=== PATIENT | female | born 1945 | race African-American/Black ===

== ENCOUNTER 2019-03-26 12:03 | Inpatient (IN) | payer MEDICARE, SELFPAY ==
[~2019-03-26 12:03] MED LIST: ISOVUE-370 76%-LOCM 1 ML ONE
[2019-03-26] MEDS ORDERED: Diltiazem 125 MG/25 ML ONE (12:43)
[2019-03-26 13:08] LABS: #Eosinphils 0.1 thou/uL (0.0-0.7); #Monocytes 0.7 thou/uL (0.11-0.59); %Basophils 0.1 % (0.0-1.0); %Eosinophils 0.9 % (0.0-10.0); %Lymphocytes 9.9 % (21.0-51.0); %Monocytes 7.2 % (0.0-10.0); Hemoglobin 10.9 g/dL (12.0-16.0); Mean Corpuscular HGB CONC 31.8 g/dL (32.0-36.0); Mean Corpuscular Hemoglobin 29.4 pg (27.0-31.0); Mean Corpuscular Volume 92.6 fL (78.0-98.0); Mean Platelet Volume 8.7 fL (7.4-10.4); Platelet Count 228 thou/uL (130-400); RBC Distribution Width 12.4 % (11.5-14.5); White Blood Cell (WBC) Count 9.7 thou/uL (4.8-10.8)
--- NOTE | 2019-03-26 13:26 | RAD ---
SINGLE VIEW OF THE CHEST: COMPARISON: None. HISTORY: Shortness of breath for 3 days; dyspnea. FINDINGS: A single view of the chest shows a cardiomediastinal silhouette which is upper limits of normal in si ze. There is questionable airspace opacity projecting over the right lower lobe. No pleural effusio n is seen. IMPRESSION: Possible early right lower lobe infiltrate. POS: TPC
[2019-03-26 13:33] LABS: ALT (SGPT) 16 U/L (8-55); AST (SGOT) 21 U/L (5-34); Albumin 3.4 g/dL (3.4-4.8); Alkaline Phosphatase 80 U/L (40-150); Anion Gap 12 mmol/L (10-20); BUN (Urea Nitrogen) 7 mg/dL (9.8-20.1); Bilirubin, Total 0.5 mg/dL (0.2-1.2); Calc. Creatinine Clearance 0 mL/min (70-130); Calcium 9.3 mg/dL (7.8-10.44); Carbon Dioxide 26 mmol/L (23-31); Chloride 105 mmol/L (98-107); Estimated GFR-MDRD 47; Globulin 3.4 g/dL (2.4-3.5); Glucose 101 mg/dL (83-110); Magnesium 1.2 mg/dL (1.6-2.6); Potassium 3.4 mmol/L (3.5-5.1); Protein, Total 6.8 g/dL (6.0-8.3); Sodium 140 mmol/L (136-145)
[2019-03-26 13:53] LABS: CKMB 2.8 ng/mL (0-6.6)
[2019-03-26] MEDS ORDERED: Aspirin Chewable 81 MG TAB ONE (14:40)
[2019-03-26] MEDS ORDERED: Enoxaparin Sodium 100 MG/ML SYRINGE ONE (14:40)
[2019-03-26] MEDS ORDERED: Magnesium 2 GM/50 ML BAG (IN WATER) ONE (14:40)
[2019-03-26] MEDS ORDERED: Enoxaparin Sodium 30 MG/0.3 ML SYRINGE ONE ×2 (14:42→14:45)
--- NOTE | 2019-03-26 15:07 | CT ---
CTA Angio Chest W WO Con 03/26/2019 2:08 PM Indication: Dyspnea; history of asthma and COPD with chest tightness and shortness of breath Technique: Multiple CTA images were obtained of the thorax with IV contrast. 3D reformatted images were constructed from the raw data. Comparison: None Findings: Pulmonary arteries: No central or segmental pulmonary embolus is evident. Heart and Great Vessels: There is cardiomegaly with pulmonary vascular congestion. Lungs:There is mild interstitial edema. There is subsegmental volume loss within both lower lobes. Pleural space: There are [id number] bilateral pleural effusions. Upper Abdomen: There is a 8.2 cm cyst within the left hepatic lobe. Osseous Structures: No acute osseous abnormality. Impression: No central or segmental pulmonary embolus. Cardiomegaly pulmonary vascular congestion and interstitial edema suspicious for CHF. There are small moderate bilateral pleural effusions. Left hepatic lobe cyst
[2019-03-26] MEDS ORDERED: Furosemide 40 MG/4 ML VIAL ONE (15:43)
[2019-03-26 16:47] LABS: Troponin I 0.109 ng/mL (< 0.028)
[2019-03-26] MEDS ORDERED: Acetaminophen 325 MG TAB PO PRN (18:54)
[2019-03-26] MEDS ORDERED: Zolpidem Tartrate 5 MG TAB PO PRN (18:56)
[2019-03-26 19:17] VITALS: BMI 42.5
[2019-03-26 19:41] LABS: Troponin I 0.124 ng/mL (< 0.028)
[2019-03-26] MEDS: Metoprolol Tartrate 50 MG TAB PO SCH (22:09)
--- NOTE | 2019-03-26 23:14 | HP ---
CHIEF COMPLAINT: Shortness of breath. HISTORY OF PRESENT ILLNESS: This patient is a 73-year-old female with a history of asthma, who presented via the emergency department. It sounds like most of her medical care has been in the direction of [place]. She reported that about 3 days ago she had the spontaneous onset of some shortness of breath, dyspnea on exertion and orthopnea. She had some associated chest pain, which she described as tightness, making it hard for her to get her breath. She stated she was unable to even get up and go a few steps to the bathroom without being severely tachypneic "panting." She had been using her nebulizers for her asthma, but felt like she was still wheezing. She had no associated nausea, vomiting, lightheadedness, fevers or chills and only a minimal cough that started this morning. She denies any prior cardiac history or rhythm issues other than stating that she was told in the past that she had "pauses." The patient was noted to have atrial fibrillation with rapid ventricular response in the emergency department with a rate in the 120. She was started on a Cardizem drip and had significant improvements in her rate control. She also received a dose of Lasix, 2 g of magnesium, therapeutic dose of Lovenox, aspirin and a DuoNeb. REVIEW OF SYSTEMS: All systems reviewed. She had some knee swelling from degenerative joint disease. Otherwise, all systems reviewed and all pertinent positives and negatives noted in the history of present illness. PAST MEDICAL HISTORY: Notable for osteoarthritis of the knees and hips. She reports she has no cartilage in her knee joints and makes it hard for her to ambulate well. 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 She is allergic rhinitis, asthma, hypertension, obstructive sleep apnea, and says she has some cardiac pauses. PAST SURGICAL HISTORY: Bilateral tubal ligation, bilateral rotator cuff repair. FAMILY HISTORY: Mother at 73 of cancer. Father at 59 of an RI. SOCIAL HISTORY: Nonsmoker, nondrinker, nondrug user. She is currently . She is full code, should she need one her surrogate decision maker would be her brother, Jennifer Holder at [phone] ALLERGIES: LISINOPRIL. CURRENT MEDICATIONS: 1. Iron 325 p.o. daily. 2. Losartan 50 mg daily. 3. Citalopram 20 mg daily. 4. Levocetirizine 5 mg daily. 5. Zolpidem 10 mg daily. 6. Felodipine 10 mg daily (patient has been out of this for a month). 7. Triamterene/hydrochlorothiazide 75-50 one p.o. daily (has been out of this for a month). 8. Metoprolol 50 mg b.i.d. (reports she has been out of this for a month). 9. Advair Diskus 100-50 one inhalation b.i.d. 10. Albuterol nebulizer as needed. PHYSICAL EXAMINATION: INITIAL VITAL SIGNS: BP is 175/123, pulse 123, respirations 16, O2 saturation 92% on room air, when she left the emergency department, BP 162/106, pulse 82, respirations 20, O2 saturation 97% on 2 L nasal cannula. GENERAL APPEARANCE: Obese, age-appropriate female, who appears quite comfortable. Presently, she is awake, alert, oriented, pleasant, no distress. HEENT: PERRL, no OP lesions. NECK: Supple and symmetric. HEART: Presently is regular rate and rhythm without murmurs, gallops, or rubs. LUNGS: Clear. I do not appreciate significant wheezing or rales. It is bit compromised, because of her obesity, but seems to have fair air exchange. ABDOMEN: Soft, nontender, and nondistended. Positive bowel sounds. No masses. No organomegaly. EXTREMITIES: No cyanosis, clubbing, or edema. Peripheral pulses are present and symmetric. LABORATORY DATA: White count 9.7, hemoglobin 10.9, platelets 228. D-dimer 1.35. Sodium 140, potassium is 3.4, BUN 7, creatinine is 1.15, glucose 101, magnesium 1.2. AST is 21, ALT 16. Troponin 0.08 and 0.109. BNP 1157. IMAGING: Chest x-ray, possible early right lower lobe infiltrate. CT angio of the chest shows no pulmonary emboli, cardiomegaly with vascular congestion and interstitial edema suspicious for CHF and small moderate bilateral pleural effusions, left lobe hepatic cyst. IMPRESSION AND PLAN: 1. Dyspnea. The patient has mild acute hypoxic respiratory failure, saturating only 92% with a respiratory rate of 26, improved on oxygen, likely combination of atrial fibrillation and congestive heart failure in a patient with underlying asthma. 2. Congestive heart failure. The patient has no history of congestive heart failure. Her BNP is elevated. She has got cardiomegaly and some evidence of vascular engorgement and edema. She did receive a dose of Lasix in the emergency department. She appears to be more stable at the moment. We will continue on telemetry and get echocardiogram in the morning. 3. Elevated troponins, likely type 2 RI with demand ischemia secondary to atrial fibrillation with rapid ventricular response. Continue telemetry. Continue monitoring enzymes. Get the echo. Consult Cardiology. 4. Atrial fibrillation with rapid ventricular rate, new onset for this patient. She does not have a history of it. This may have led to the elevated troponins and possibly some high-output failure. The patient apparently was on beta blockers previously, but has been out of those, which might have allowed for this to occur. She was started on a Cardizem drip in the emergency department and has apparently just now converted back to sinus rhythm. We will continue that drip for now, especially in light of her elevated blood pressure. Should her pressure drop or heart rate drop, we will be able to discontinue that tonight. 5. Asthma. The patient does not have significant wheezing at the moment. I believe that her symptoms are more related to cardiac issues than reactive airway disease. We will provide her with some nebulizer treatments as needed. 6. Hypertension. The patient has been out of several of her medications. I believe this may be related to some social issues and separation from her . We will keep the diltiazem drip for now. We will likely be able to get her back on the oral medications tomorrow. 7. Renal. The patient has elevated creatinine. We do not have any baseline numbers for her otherwise to know, if this is acute or chronic. I suspect she has some mild acute renal injury due to the atrial fibrillation with rapid ventricular rate and heart failure. 8. Mild anemia. The patient is on iron, consistent with a history of some iron deficiency. Her MCV is normal. We will not investigate further unless other significant changes occur. Job ID: [id number]
[2019-03-27] MEDS: Albuterol Sulfate 2.5 mg/3 ml Neb NEB PRN ×2 (03:44→09:51)
[2019-03-27 07:23] LABS: Anion Gap 11 mmol/L (10-20); BUN (Urea Nitrogen) 7 mg/dL (9.8-20.1); Calc. Creatinine Clearance 76 mL/min (70-130); Calcium 9.3 mg/dL (7.8-10.44); Carbon Dioxide 29 mmol/L (23-31); Chloride 102 mmol/L (98-107); Estimated GFR-MDRD 59; Glucose 89 mg/dL (83-110); Potassium 3.3 mmol/L (3.5-5.1); Sodium 139 mmol/L (136-145)
[2019-03-27] MEDS ORDERED: Potassium Chloride 20 MEQ TAB PO SCH (08:00)
[2019-03-27] MEDS ORDERED: Magnesium Sulfate 4 GM in Sodium Chloride 0.9% 250 ML 250 ML IVPB SCH (08:45)
[2019-03-27] MEDS ORDERED: Diltiazem 125 MG in Sodium Chloride 0.9% 100 ML IVPB SCH (08:45)
[2019-03-27] MEDS ORDERED: Furosemide 20 MG/2 ML VIAL SLOW IVP SCH ×3 (08:45→14:00)
[2019-03-27] MEDS ORDERED: Aspirin 325 mg Enteric Coated Tablet PO SCH (09:00)
[2019-03-27] MEDS ORDERED: Triamterene/Hydrochlorothiazid 75 mg/50 mg Tablet PO SCH (09:00)
[2019-03-27] MEDS: Losartan 25 MG TAB PO SCH (09:02)
[2019-03-27] MEDS: Loratadine 10 MG TAB PO SCH (09:02)
[2019-03-27] MEDS: Citalopram 20 MG TAB PO SCH (09:02)
[2019-03-27] MEDS: Metoprolol Tartrate 50 MG TAB PO SCH (09:03)
[2019-03-27 09:08] LABS: CKMB 2.7 ng/mL (0-6.6)
[2019-03-27] MEDS: ALPRAZolam 0.25 MG TAB PO PRN ×2 (09:47→20:59)
[2019-03-27] MEDS ORDERED: methylPREDNISolone Sod Succ 40 MG VIAL IVP SCH (10:00)
[2019-03-27] MEDS ORDERED: Bacteriostatic Water 30 ML VIAL FS PRN (10:40)
[2019-03-27] MEDS: Potassium Chloride 20 MEQ TAB PO SCH ×2 (12:52→16:34)
[2019-03-27] MEDS ORDERED: Fentanyl 100 MCG/2 ML VIAL ONE (13:44)
[2019-03-27] MEDS ORDERED: Midazolam HCl 2 mg/2 ml Vial ONE (13:44)
[2019-03-27] MEDS ORDERED: Communication Order-Pharmacy FS SCH (14:00)
[2019-03-27] MEDS: Furosemide 40 MG/4 ML VIAL SLOW IVP SCH (14:35)
[2019-03-27] MEDS: Carvedilol 25 MG TAB PO SCH (16:34)
--- NOTE | 2019-03-27 18:16 | PRG ---
DATE OF SERVICE: 03/27/2019 SUBJECTIVE: The patient continues to have significant shortness of breath and wheezing. She denies any fever or chills. She has a cough, which is essentially nonproductive. No chest pain. REVIEW OF SYSTEMS: The patient denies any nausea, vomiting, or diaphoresis. She feels depressed, however denies any suicidal ideation. She has lot of stress lately. All other review of systems was reviewed and was found negative. ALLERGIES: THE PATIENT IS ALLERGIC TO LISINOPRIL. CURRENT HOME MEDICATIONS: Reviewed. PHYSICAL EXAMINATION: VITAL SIGNS: Temperature 98.5, pulse rate of 77, respiration of 24 earlier and at this time is 32, O2 saturation 97% on 2 L nasal cannula, and blood pressure 150/94. GENERAL: A 73-year-old female in [id number] respiratory distress. Audible wheezing noted. Able to complete short phrases. HEENT: Head; atraumatic and normocephalic. Sclerae anicteric. Moist mucous membranes. No oral lesion. NECK: Supple. JVD elevated. LUNGS: Showed diffuse expiratory wheezing with bibasilar rales. There was scattered wheezing. Accessory muscle use. HEART: S1 and S2 present. Regular rate and rhythm. 2/6 systolic murmur over the mitral area. No heaves or pulsation. ABDOMEN: Soft and obese. Bowel sounds present. EXTREMITIES: Bilateral lower extremity edema. No calf tenderness. NEUROLOGIC: Grossly nonfocal, moves all 4 extremities. PSYCHIATRIC: Alert, awake, and oriented x3. LABORATORY FINDINGS: Magnesium 1.4. Troponin 0.124, creatinine 1.1, potassium 3.3. WBC 9.7 with hemoglobin 10.9, platelet of 228. CT angiogram of the chest by my review showed pulmonary vascular congestion with small moderate bilateral pleural effusion. Telemetry monitoring by my review showed sinus rhythm. IMPRESSION: 1. Atrial fibrillation with rapid ventricular response. The patient is currently in sinus rhythm. 2. Acute congestive heart failure exacerbation, suspected systolic. 3. Morbid obesity with a BMI of 41.8. 4. Hypokalemia. 5. Hypomagnesemia. 6. Type 2 myocardial infarction. 7. Asthma exacerbation. 8. History of mild intermittent asthma. 9. Hypertension. 10. Depression without any suicidal ideation. 11. Seasonal allergies. 12. Chronic insomnia. 13. NOE inhibitor allergy. PLAN: Cardizem drip will be continued. Cardiology will be consulted. We will replace potassium and magnesium. We will recheck labs in a.m. Echocardiogram will be done. We will consult [facility] due to significant depression. Continue beta-blockers. Continue losartan. IV diuretics. Fluid restriction. Congestive heart failure education. We will consult family preservation caseworker for assistance due to difficult family situation. The patient will require 2 to 3 days for stabilization. Job ID: [id number]
[2019-03-27] MEDS: Enoxaparin Sodium 100 MG/ML SYRINGE SC SCH (20:59)
[2019-03-27] MEDS: Atorvastatin Calcium 40 MG TAB PO SCH (20:59)
[2019-03-27] MEDS ORDERED: Enoxaparin Sodium 40 MG/0.4 ML SYRINGE SC SCH (21:00)
--- NOTE | 2019-03-27 21:33 | CON ---
DATE OF CONSULTATION: HISTORY OF PRESENT ILLNESS: The patient is a 73-year-old woman, who presents for evaluation of palpitations and dyspnea. The patient has a previous history of an irregular heart rhythm. She states she was in her usual state of health when she several days ago developed progressive dyspnea on exertion. The patient states she also developed PND and orthopnea. The patient also reports having significant palpitations. The patient denied having any chest discomfort. PAST MEDICAL HISTORY: 1. Hypertension. 2. Asthma. 3. History of pneumonia. 4. Depression. PAST SURGICAL HISTORY: 1. Shoulder surgery. 2. Tubal ligation. SOCIAL HISTORY: Former smoker. MEDICATIONS: 1. Metoprolol 50 b.i.d. 2. Felodipine 10 daily. 3. Losartan 50 daily. 4. Celexa 20 daily. 5. Levocetirizine dihydrochloride 5 mg at bedtime. 6. Triamterene-hydrochlorothiazide 75 mg/50 mg daily. FAMILY HISTORY: Positive family history of heart disease. ALLERGIES: LISINOPRIL. SOCIAL HISTORY: Former smoker. REVIEW OF SYSTEMS: Ten-point system otherwise unremarkable. PHYSICAL EXAMINATION: GENERAL: Obese woman, in mild distress. VITAL SIGNS: Blood pressure of 127/82. NECK: Full. LUNGS: Few crackles in both bases. HEART: Regular rate and rhythm. Normal S1, S2. No murmurs. ABDOMEN: Distended. EXTREMITIES: Showed trace edema. VASCULAR: Radial pulses 2+. LABORATORY DATA: White blood cell count 9.7, hemoglobin 10.9, hematocrit 34.3, platelets are 228. Sodium is 139, potassium 3.3, chloride 102, bicarbonate 29, BUN 7, creatinine 1.1. Troponin 0.078. Her initial EKG revealed atrial fibrillation with a nonspecific T-wave abnormality. EKG #2 revealed normal sinus rhythm with left anterior fascicular block and marked ST-T wave abnormality suggestive of ischemia. Echocardiogram revealed severe decrease in left ventricular systolic function with an estimated ejection fraction of 25% to 30%. IMPRESSION: 1. Congestive heart failure. 2. New-onset atrial fibrillation. 3. Dilated cardiomyopathy. 4. Hypertension. 5. Morbid obesity. This patient presents with congestive heart failure. From a cardiac standpoint , she has new-onset atrial fibrillation. Her electrocardiogram shows evidence for some significant ischemia. I discussed the option of stress testing versus a cardiac catheterization. The patient strongly prefers an invasive evaluation. PLAN: 1. Proceed with cardiac catheterization. 2. Switched to Coreg. 3. Continue losartan. 4. Start lipid-lowering medication. Job ID: [id number] [place]
[2019-03-27] MEDS: Zolpidem Tartrate 5 MG TAB PO PRN (21:44)
[2019-03-28] MEDS: Furosemide 40 MG/4 ML VIAL SLOW IVP SCH (05:31)
[2019-03-28 05:32] LABS: #Lymphocytes 1.2 thou/uL (1.20-3.40); #Neutrophils 9.3 thou/uL (1.40-6.50); %Eosinophils 0.1 % (0.0-10.0); %Lymphocytes 10.8 % (21.0-51.0); %Monocytes 8.4 % (0.0-10.0); %Neutrophils 80.6 % (42.0-75.0); Mean Corpuscular HGB CONC 32.2 g/dL (32.0-36.0); Mean Corpuscular Hemoglobin 30.2 pg (27.0-31.0); Mean Corpuscular Volume 93.7 fL (78.0-98.0); Mean Platelet Volume 9.1 fL (7.4-10.4); Platelet Count 255 thou/uL (130-400); RBC Distribution Width 12.5 % (11.5-14.5); Red Blood Cell (RBC) Count 3.63 mill/uL (4.20-5.40); White Blood Cell (WBC) Count 11.5 thou/uL (4.8-10.8)
[2019-03-28 05:59] LABS: ALT (SGPT) 14 U/L (8-55); AST (SGOT) 14 U/L (5-34); Albumin 3.4 g/dL (3.4-4.8); Alkaline Phosphatase 75 U/L (40-150); Anion Gap 9 mmol/L (10-20); BUN (Urea Nitrogen) 16 mg/dL (9.8-20.1); Bilirubin, Total 0.4 mg/dL (0.2-1.2); Calc. Creatinine Clearance 61 mL/min (70-130); Carbon Dioxide 34 mmol/L (23-31); Chloride 100 mmol/L (98-107); Estimated GFR-MDRD 46; Globulin 3.3 g/dL (2.4-3.5); Glucose 122 mg/dL (83-110); Potassium 3.8 mmol/L (3.5-5.1); Protein, Total 6.7 g/dL (6.0-8.3); Sodium 139 mmol/L (136-145)
[2019-03-28] MEDS: Citalopram 20 MG TAB PO SCH (08:42)
[2019-03-28] MEDS: Loratadine 10 MG TAB PO SCH (08:42)
[2019-03-28] MEDS: Carvedilol 25 MG TAB PO SCH ×2 (08:42→16:46)
[2019-03-28] MEDS: Losartan 25 MG TAB PO SCH (08:42)
[2019-03-28] MEDS: Potassium Chloride 20 MEQ TAB PO SCH ×2 (08:42→12:45)
[2019-03-28] MEDS: Enoxaparin Sodium 100 MG/ML SYRINGE SC SCH ×2 (08:43→21:05)
[2019-03-28] MEDS: Aspirin 81 mg Enteric Coated Tablet PO SCH (10:11)
[2019-03-28] MEDS: Furosemide 20 MG/2 ML VIAL SLOW IVP SCH (14:18)
--- NOTE | 2019-03-28 16:24 | PDOC.PN ---
- Subjective Encounter Start Date: 03/28/19 Encounter Start Time: 11:00 Patient seen and examined for CHF/Afib. SOB improving. No fever. No new complaints. No overnight events - Objective Resuscitation Status - Order Detail: 03/26/19 18:54 Resuscitation Status Routine Resuscitation Status: FULL: Full Resuscitation MAR Reviewed: Yes Vital Signs & Weight: Vital Signs (12 hours) Temp Pulse Pulse Pulse Resp BP BP 03/28/19 14:26 78 20 03/28/19 13:04 71 83 112/63 131/73 03/28/19 12:41 97.8 F 75 18 03/28/19 08:26 97.7 F 68 18 03/28/19 05:07 BP Pulse Ox Pulse Ox Pulse Ox 03/28/19 14:26 98 03/28/19 13:04 94 L 96 03/28/19 12:41 105/72 98 03/28/19 08:26 133/73 97 03/28/19 05:07 92 L Weight Weight 224 lb 8 oz I&O: 03/27/19 03/28/19 03/29/19 06:59 06:59 06:59 Intake Total 500 1388 Output Total 900 1520 Balance -400 -132 Result Diagrams: 03/28/19 04:46 03/28/19 04:46 EKG Reviewed by me: Yes (Tele SR, PAT earlier) Phys Exam - Physical Examination Constitutional: NAD Respiratory: no wheezing B/L rhonchi with rales at bases Cardiovascular: RRR, no rub Gastrointestinal: soft, non-tender, positive bowel sounds Musculoskeletal: edema present Neurological: moves all 4 limbs Dx/Plan - Plan DVT proph w/lovenox IMPRESSION: 1. Atrial fibrillation with rapid ventricular response - in sinus rhythm. 2. Acute systolic heart failure exacerbation - ACC stage C. 3. Morbid obesity with a BMI of 41.8. 4. Hypokalemia. 5. Hypomagnesemia. 6. Type 2 myocardial infarction. 7. Asthma exacerbation. 8. History of mild intermittent asthma. 9. Hypertension. 10. Depression without any suicidal ideation. 11. Seasonal allergies. 12. Chronic insomnia. 13. NOE inhibitor allergy. 14. Mitral regurgitation. 15. SVT PLAN: Reduce Lasix dose to 20 mg IV BID Reduce Potassium dose AM labs Cont fluid restriction Patient declining Cath Cont ACEI BB dose increased Counselled on CHF Review of Systems - Review of Systems Respiratory: Cough, Dry, SOB with Excertion. negative: Shortness of Breath, Hemoptysis, Pleuritic Pain, Sputum, Wheezing Cardiovascular: negative: chest pain, palpitations, orthopnea, paroxysmal nocturnal dyspnea, edema, light headedness, other Gastrointestinal: negative: Nausea, Vomiting, Abdominal Pain, Diarrhea, Constipation, Melena, Hematochezia, Other - Medications/Allergies Allergies/Adverse Reactions: Allergies Allergy/AdvReac Type Severity Reaction Status Date / Time lisinopril Allergy Severe Anaphylaxis Verified 03/26/19 19:41 Medications: Current Medications Acetaminophen (Tylenol) 650 mg PO Q4H PRN PRN Reason: Headache/Fever/Mild Pain (1-3) Last Admin: 03/26/19 22:09 Dose: 650 mg Albuterol Sulfate (Ventolin) 2.5 mg NEB Q4H PRN PRN Reason: Wheezing Last Admin: 03/27/19 09:51 Dose: 2.5 mg Albuterol/Ipratropium (Duoneb) 3 ml NEB [id number] PRN PRN Reason: SOB &/or Wheezing Last Admin: 03/28/19 14:26 Dose: 3 ml Alprazolam (Xanax) 0.25 mg PO BIDPRN PRN PRN Reason: Anxiety Last Admin: 03/27/19 20:59 Dose: 0.25 mg Aspirin (Ecotrin) 81 mg PO DAILY [facility] Last Admin: 03/28/19 10:11 Dose: 81 mg Atorvastatin Calcium (Lipitor) 40 mg PO HS [facility] Last Admin: 03/27/19 20:59 Dose: 40 mg Carvedilol (Coreg) 25 mg PO BID-WM [facility] Last Admin: 03/28/19 08:42 Dose: 25 mg Citalopram Hydrobromide (Celexa) 20 mg PO DAILY [facility] Last Admin: 03/28/19 08:42 Dose: 20 mg Enoxaparin Sodium (Lovenox) 100 mg SC 0900,2100 [facility] Last Admin: 03/28/19 08:43 Dose: 100 mg Furosemide (Lasix) 20 mg SLOW IVP 0600,1400 [facility] Last Admin: 03/28/19 14:18 Dose: 20 mg Loratadine (Claritin) 10 mg PO DAILY [facility] Last Admin: 03/28/19 08:42 Dose: 10 mg Losartan Potassium (Cozaar) 50 mg PO DAILY [facility] Last Admin: 03/28/19 08:42 Dose: 50 mg Potassium Chloride (K-Dur) 20 meq PO TID-WM [facility] Last Admin: 03/28/19 12:45 Dose: 20 meq Sodium Chloride (Flush - Normal Saline) 10 ml IVF Q12HR [facility] Last Admin: 03/28/19 08:42 Dose: 10 ml Sodium Chloride (Flush - Normal Saline) 10 ml IVF PRN PRN PRN Reason: Saline Flush Sterile Water (Bacteriostatic Water) 1 ml FS PRN PRN PRN Reason: RECONSTITUTION Zolpidem Tartrate (Ambien) 5 mg PO HSPRN PRN PRN Reason: Insomnia Last Admin: 03/27/19 21:44 Dose: 5 mg
[2019-03-28] MEDS: Zolpidem Tartrate 5 MG TAB PO PRN (21:05)
[2019-03-28] MEDS: Atorvastatin Calcium 40 MG TAB PO SCH (21:05)
[2019-03-28] MEDS: ALPRAZolam 0.25 MG TAB PO PRN (21:05)
[2019-03-29] MEDS: Furosemide 20 MG/2 ML VIAL SLOW IVP SCH (05:48)
[2019-03-29 06:59] LABS: Anion Gap 10 mmol/L (10-20); BUN (Urea Nitrogen) 19 mg/dL (9.8-20.1); Calc. Creatinine Clearance 60 mL/min (70-130); Calcium 9.6 mg/dL (7.8-10.44); Carbon Dioxide 36 mmol/L (23-31); Chloride 99 mmol/L (98-107); Estimated GFR-MDRD 46; Glucose 84 mg/dL (83-110); Magnesium 1.8 mg/dL (1.6-2.6); Potassium 3.3 mmol/L (3.5-5.1); Sodium 142 mmol/L (136-145)
[2019-03-29] MEDS ORDERED: Communication Order-Pharmacy FS SCH (08:15)
[2019-03-29] MEDS: Enoxaparin Sodium 100 MG/ML SYRINGE SC SCH ×2 (08:41→20:31)
[2019-03-29] MEDS: Citalopram 20 MG TAB PO SCH (08:41)
[2019-03-29] MEDS: Carvedilol 25 MG TAB PO SCH ×2 (08:41→16:33)
[2019-03-29] MEDS: Aspirin 81 mg Enteric Coated Tablet PO SCH (08:41)
[2019-03-29] MEDS: Potassium Chloride 20 MEQ TAB PO SCH (08:41)
[2019-03-29] MEDS: Loratadine 10 MG TAB PO SCH (08:42)
[2019-03-29] MEDS: Losartan 25 MG TAB PO SCH (08:42)
[2019-03-29] MEDS ORDERED: Potassium Chloride 20 MEQ TAB PO SCH (12:00)
--- NOTE | 2019-03-29 14:08 | EKG ---
Test Reason : Blood Pressure : / mmHG Vent. Rate : 073 BPM Atrial Rate : 073 BPM P-R Int : 144 ms QRS Dur : 090 ms QT Int : 484 ms P-R-T Axes : 004 -63 -86 degrees QTc Int : 533 ms Normal sinus rhythm Left anterior fascicular block Prolonged QT Abnormal ECG No previous ECGs available Confirmed by DAVE JIMENEZ ([id number]) on 03/29/2019 2:08:19 PM Referred By: ENMA Confirmed By:DAVE JIMENEZ
--- NOTE | 2019-03-29 15:11 | PDOC.PN ---
- Subjective Encounter Start Date: 03/29/19 Encounter Start Time: 11:00 Patient seen and examined for CHF/Afib. SOB improving. No fever/chills. No new complaints. No overnight events - Objective Resuscitation Status - Order Detail: 03/26/19 18:54 Resuscitation Status Routine Resuscitation Status: FULL: Full Resuscitation MAR Reviewed: Yes Vital Signs & Weight: Vital Signs (12 hours) Temp Pulse Pulse Pulse Resp BP BP 03/29/19 14:44 95 85 138/92 H 148/93 H 03/29/19 11:07 98.6 F 83 16 03/29/19 08:31 98.1 F 96 18 03/29/19 03:37 98.0 F 88 16 BP Pulse Ox Pulse Ox Pulse Ox 03/29/19 14:44 90 L 90 L 03/29/19 11:07 94/57 L 92 L 03/29/19 08:31 152/82 H 94 L 03/29/19 03:37 127/79 93 L Weight Weight 225 lb 1.6 oz I&O: 03/28/19 03/29/19 03/30/19 06:59 06:59 06:59 Intake Total 1388 1460 Output Total 1520 1850 Balance -132 -390 Result Diagrams: 03/28/19 04:46 03/29/19 06:02 EKG Reviewed by me: Yes (Tele SR) Phys Exam - Physical Examination Constitutional: NAD Respiratory: no wheezing, no rhonchi Cardiovascular: no rub, irregular Gastrointestinal: soft, non-tender, positive bowel sounds Musculoskeletal: edema present (improving) Neurological: non-focal, moves all 4 limbs Psychiatric: A&O x 3 Dx/Plan - Plan DVT proph w/lovenox IMPRESSION: 1. Atrial fibrillation with rapid ventricular response - in sinus rhythm. 2. Acute systolic heart failure exacerbation - ACC stage C. 3. Morbid obesity with a BMI of 41.8. 4. Hypokalemia. 5. Hypomagnesemia. 6. Type 2 myocardial infarction. 7. Asthma exacerbation. 8. History of mild intermittent asthma. 9. Hypertension. 10. Depression without any suicidal ideation. 11. Seasonal allergies. 12. Chronic insomnia. 13. NOE inhibitor allergy. 14. Mitral regurgitation. 15. SVT PLAN: Cont ACEI/BB Lasix dced Replace Potassium Cont fluid restriction Cardiac Cath in AM AM labs Review of Systems - Review of Systems Respiratory: SOB with Excertion. negative: Cough, Dry, Shortness of Breath, Hemoptysis, Pleuritic Pain, Sputum, Wheezing Cardiovascular: negative: chest pain, palpitations, orthopnea, paroxysmal nocturnal dyspnea, edema, light headedness, other Gastrointestinal: negative: Nausea, Vomiting, Abdominal Pain, Diarrhea, Constipation, Melena, Hematochezia, Other - Medications/Allergies Allergies/Adverse Reactions: Allergies Allergy/AdvReac Type Severity Reaction Status Date / Time lisinopril Allergy Severe Anaphylaxis Verified 03/26/19 19:41 Medications: Current Medications Acetaminophen (Tylenol) 650 mg PO Q4H PRN PRN Reason: Headache/Fever/Mild Pain (1-3) Last Admin: 03/26/19 22:09 Dose: 650 mg Albuterol Sulfate (Ventolin) 2.5 mg NEB Q4H PRN PRN Reason: Wheezing Last Admin: 03/27/19 09:51 Dose: 2.5 mg Albuterol/Ipratropium (Duoneb) 3 ml NEB [id number] PRN PRN Reason: SOB &/or Wheezing Last Admin: 03/28/19 14:26 Dose: 3 ml Alprazolam (Xanax) 0.25 mg PO BIDPRN PRN PRN Reason: Anxiety Last Admin: 03/28/19 21:05 Dose: 0.25 mg Aspirin (Ecotrin) 81 mg PO DAILY [facility] Last Admin: 03/29/19 08:41 Dose: 81 mg Atorvastatin Calcium (Lipitor) 40 mg PO HS [facility] Last Admin: 03/28/19 21:05 Dose: 40 mg Carvedilol (Coreg) 25 mg PO BID-WM [facility] Last Admin: 03/29/19 08:41 Dose: 25 mg Citalopram Hydrobromide (Celexa) 20 mg PO DAILY [facility] Last Admin: 03/29/19 08:41 Dose: 20 mg Enoxaparin Sodium (Lovenox) 100 mg SC 0900,2100 [facility] Stop: 03/29/19 22:00 Last Admin: 03/29/19 08:41 Dose: 100 mg Loratadine (Claritin) 10 mg PO DAILY [facility] Last Admin: 03/29/19 08:42 Dose: 10 mg Losartan Potassium (Cozaar) 50 mg PO DAILY [facility] Last Admin: 03/29/19 08:42 Dose: 50 mg Miscellaneous Information (Communication Order-Pharmacy) 0 each FS [facility] Stop: 03/29/19 23:59 Potassium Chloride (K-Dur) 20 meq PO QAM-WM [facility] Last Admin: 03/29/19 08:41 Dose: 20 meq Sodium Chloride (Flush - Normal Saline) 10 ml IVF Q12HR [facility] Last Admin: 03/29/19 08:42 Dose: 10 ml Sodium Chloride (Flush - Normal Saline) 10 ml IVF PRN PRN PRN Reason: Saline Flush Last Admin: 03/29/19 05:48 Dose: 10 ml Sterile Water (Bacteriostatic Water) 1 ml FS PRN PRN PRN Reason: RECONSTITUTION Zolpidem Tartrate (Ambien) 5 mg PO HSPRN PRN PRN Reason: Insomnia Last Admin: 03/28/19 21:05 Dose: 5 mg
[2019-03-29] MEDS: ALPRAZolam 0.25 MG TAB PO PRN (20:31)
[2019-03-29] MEDS: Zolpidem Tartrate 5 MG TAB PO PRN (20:31)
[2019-03-29] MEDS: Atorvastatin Calcium 40 MG TAB PO SCH (20:31)
[2019-03-30 03:20] LABS: Platelet Count 248 thou/uL (130-400)
[2019-03-30 03:52] LABS: Anion Gap 11 mmol/L (10-20); BUN (Urea Nitrogen) 21 mg/dL (9.8-20.1); Calc. Creatinine Clearance 63 mL/min (70-130); Calcium 9.7 mg/dL (7.8-10.44); Carbon Dioxide 33 mmol/L (23-31); Chloride 101 mmol/L (98-107); Estimated GFR-MDRD 48; Glucose 84 mg/dL (83-110); Magnesium 1.6 mg/dL (1.6-2.6); Potassium 3.8 mmol/L (3.5-5.1); Sodium 141 mmol/L (136-145)
[2019-03-30] MEDS: Potassium Chloride 20 MEQ TAB PO SCH (05:33)
[2019-03-30] MEDS: Aspirin 81 mg Enteric Coated Tablet PO SCH (05:34)
[2019-03-30] MEDS: Citalopram 20 MG TAB PO SCH (05:34)
[2019-03-30] MEDS: Losartan 25 MG TAB PO SCH (05:34)
[2019-03-30] MEDS: Carvedilol 25 MG TAB PO SCH ×2 (05:34→16:21)
[2019-03-30] MEDS: Loratadine 10 MG TAB PO SCH (05:34)
[2019-03-30] MEDS ORDERED: Iopamidol 370 76% 100 ML VIAL ONE (09:51)
[2019-03-30] MEDS ORDERED: Iopamidol 370 76% 50 ML VIAL FS ONE (09:51)
[2019-03-30] MEDS ORDERED: Magnesium 2 GM/50 ML 2 GM in Premix Bag 1 BAG IVPB SCH (10:00)
[2019-03-30] MEDS ORDERED: Midazolam HCl 2 mg/2 ml Vial ONE (11:35)
[2019-03-30] MEDS ORDERED: Sodium Chloride 0.9% 200 ML IV PRN (11:54)
[2019-03-30] MEDS ORDERED: Acetaminophen/Codeine 30-300mg Tablet PO PRN ×2 (11:54)
[2019-03-30] MEDS ORDERED: Nitroglycerin 0.4 MG TAB (25 Tab Bottle) SL PRN (11:54)
--- NOTE | 2019-03-30 18:50 | PDOC.PN ---
- Subjective Encounter Start Date: 03/30/19 Encounter Start Time: 09:30 Patient seen and examined for CHF. SOB improving. No fever/chills. No new complaints. No overnight events - Objective Resuscitation Status - Order Detail: 03/26/19 18:54 Resuscitation Status Routine Resuscitation Status: FULL: Full Resuscitation MAR Reviewed: Yes Vital Signs & Weight: Vital Signs (12 hours) Temp Pulse Pulse Pulse Resp BP BP 03/30/19 16:18 98.1 F 72 16 03/30/19 12:14 97.9 F 70 18 03/30/19 11:03 97.9 F 76 16 03/30/19 10:33 81 71 128/68 108/63 03/30/19 07:20 97.9 F 84 16 BP Pulse Ox Pulse Ox Pulse Ox 03/30/19 16:18 159/94 H 98 03/30/19 12:14 125/72 98 03/30/19 11:03 127/72 92 L 03/30/19 10:33 90 L 93 L 03/30/19 07:20 114/68 92 L Weight Weight 224 lb 9.6 oz I&O: 03/29/19 03/30/19 03/31/19 06:59 06:59 06:59 Intake Total 1460 1420 Output Total 1850 0 Balance -390 -630 Result Diagrams: 03/30/19 03:03 03/30/19 03:03 EKG Reviewed by me: Yes (Tele SR) Phys Exam - Physical Examination Constitutional: NAD Respiratory: no wheezing, no rhonchi few rales at bases Cardiovascular: RRR, no rub Gastrointestinal: soft, positive bowel sounds Musculoskeletal: edema present (1+) Neurological: non-focal Dx/Plan - Plan DVT proph w/SCDs IMPRESSION: 1. Atrial fibrillation with rapid ventricular response - in sinus rhythm. 2. Acute systolic heart failure exacerbation - ACC stage C. improving. 3. Morbid obesity with a BMI of 41.8. 4. Hypokalemia. 5. Hypomagnesemia. 6. Type 2 myocardial infarction. 7. Asthma exacerbation. on PRN nebs 8. History of mild intermittent asthma. 9. Hypertension. 10. Depression without any suicidal ideation. s/p [facility] evaluation 11. Seasonal allergies. 12. Chronic insomnia. 13. NOE inhibitor allergy. 14. Mitral regurgitation. 15. SVT PLAN: Cont BB Lasix on hold Replace Magnessium Cont fluid restriction Cardiac Cath today BMP in AM Review of Systems - Review of Systems Cardiovascular: negative: chest pain, palpitations, orthopnea, paroxysmal nocturnal dyspnea, edema, light headedness, other Gastrointestinal: negative: Nausea, Vomiting, Abdominal Pain, Diarrhea, Constipation, Melena, Hematochezia, Other - Medications/Allergies Allergies/Adverse Reactions: Allergies Allergy/AdvReac Type Severity Reaction Status Date / Time lisinopril Allergy Severe Anaphylaxis Verified 03/26/19 19:41 Medications: Current Medications Acetaminophen (Tylenol) 650 mg PO Q4H PRN PRN Reason: Headache/Fever/Mild Pain (1-3) Last Admin: 03/26/19 22:09 Dose: 650 mg Acetaminophen/Codeine Phosphate (Tylenol #3) 1 tab PO Q4H PRN PRN Reason: Mild Pain (1-3) Acetaminophen/Codeine Phosphate (Tylenol #3) 2 tab PO Q4H PRN PRN Reason: Moderate Pain (4-6) Last Admin: 03/30/19 14:07 Dose: 2 tab Albuterol Sulfate (Ventolin) 2.5 mg NEB Q4H PRN PRN Reason: Wheezing Last Admin: 03/27/19 09:51 Dose: 2.5 mg Albuterol/Ipratropium (Duoneb) 3 ml NEB [id number] PRN PRN Reason: SOB &/or Wheezing Last Admin: 03/28/19 14:26 Dose: 3 ml Alprazolam (Xanax) 0.25 mg PO BIDPRN PRN PRN Reason: Anxiety Last Admin: 03/29/19 20:31 Dose: 0.25 mg Aspirin (Ecotrin) 81 mg PO DAILY [facility] Last Admin: 03/30/19 05:34 Dose: 81 mg Carvedilol (Coreg) 25 mg PO BID-[facility] Last Admin: 03/30/19 16:21 Dose: 25 mg Citalopram Hydrobromide (Celexa) 20 mg PO DAILY [facility] Last Admin: 03/30/19 05:34 Dose: 20 mg Sodium Chloride (Normal Saline 0.9%) 200 mls @ 0 mls/hr IV ONE PRN PRN Reason: SBP < 90 Stop: 04/02/19 11:55 Loratadine (Claritin) 10 mg PO DAILY [facility] Last Admin: 03/30/19 05:34 Dose: 10 mg Nitroglycerin (Nitrostat) 0.4 mg SL Q5MIN PRN PRN Reason: Chest Pain Sodium Chloride (Flush - Normal Saline) 10 ml IVF Q12HR [facility] Last Admin: 03/30/19 05:34 Dose: 10 ml Sodium Chloride (Flush - Normal Saline) 10 ml IVF PRN PRN PRN Reason: Saline Flush Last Admin: 03/29/19 05:48 Dose: 10 ml Sterile Water (Bacteriostatic Water) 1 ml FS PRN PRN PRN Reason: RECONSTITUTION Zolpidem Tartrate (Ambien) 5 mg PO HSPRN PRN PRN Reason: Insomnia Last Admin: 03/29/19 20:31 Dose: 5 mg
[2019-03-30] MEDS: Zolpidem Tartrate 5 MG TAB PO PRN (21:31)
[2019-03-31 05:13] LABS: Hemoglobin 10.8 g/dL (12.0-16.0); Platelet Count 248 thou/uL (130-400)
[2019-03-31 05:32] LABS: Anion Gap 10 mmol/L (10-20); BUN (Urea Nitrogen) 16 mg/dL (9.8-20.1); Calc. Creatinine Clearance 62 mL/min (70-130); Calcium 9.6 mg/dL (7.8-10.44); Carbon Dioxide 32 mmol/L (23-31); Chloride 102 mmol/L (98-107); Estimated GFR-MDRD 47; Glucose 87 mg/dL (83-110); Potassium 4.1 mmol/L (3.5-5.1); Sodium 140 mmol/L (136-145)
[2019-03-31] MEDS: Citalopram 20 MG TAB PO SCH (08:52)
[2019-03-31] MEDS: Loratadine 10 MG TAB PO SCH (08:52)
[2019-03-31] MEDS: Aspirin 81 mg Enteric Coated Tablet PO SCH (08:53)
[2019-03-31] MEDS: Carvedilol 25 MG TAB PO SCH ×2 (08:53→17:01)
[2019-03-31 15:24] VITALS: BP 129/84; TEMP 97.5
[2019-03-31] MEDS ORDERED: Sacubitril 24.5 MG/Valsartan 25.5 MG TABLET PO SCH (21:00)
--- NOTE | 2019-04-01 09:15 | DIS ---
DATE OF ADMISSION: 03/26/2019 DATE OF DISCHARGE: 03/31/2019 DISCHARGE DISPOSITION: Home. FOLLOWUP: 1. Follow up with Dr. Ashwini Adair next week. 2. Follow up with Dr. Sridhar Schaeffer in 2 to 3 weeks. 3. [facility] followup as outpatient. 4. Basic metabolic profile after 1 week is recommended. Primary care physician advised to follow. 5. If the patient decides to go back to [place], she was advised to follow up with the primary care physician at [facility]. The patient was seen and examined on the day of discharge. Denies any new complaints. No chest pain, shortness of breath, palpitations. DISCHARGE MEDICATIONS: 1. Albuterol inhaler as needed. 2. Eliquis 5 mg b.i.d. 3. Carvedilol 25 mg b.i.d. 4. Celexa 20 mg daily. 5. Levocetirizine 5 mg at bedtime. 6. Entresto b.i.d. The patient was extensively counseled on congestive heart failure as well as fluid restriction. The patient understands the risks associated with anticoagulation, not limited to life threatening, bleeding, including . BRIEF HOSPITAL COURSE: The patient is a 73-year-old female from out [facility], presented to the hospital with shortness of breath. The shortness of breath has been going on for 3 to 4 days, associated with orthopnea, leg swelling, and wheezing. Please refer to the history and physical for further details. The patient was admitted to the hospital with a diagnosis of congestive heart failure with atrial fibrillation with rapid ventricular response. She was started on diuretics with good response. She also required few doses of steroids along with supplemental oxygen. The patient was evaluated by Cardiology and underwent cardiac catheterization that showed no flow-limiting disease. Official cardiac cath report is pending at this time. Echocardiogram showed ejection fraction 25% to 30% with [id number] mitral regurgitation and mild tricuspid regurgitation. She has been started on Entresto. She is currently on room air. Her weight on the day of discharge is 222 pounds from 232 pounds on admission. She was advised to be compliant with fluid restriction. Daily weight was emphasized. She was counseled on dietary restrictions for congestive heart failure. She will benefit from a repeat labs after 1 week. FINAL DIAGNOSES: 1. Acute hypoxic respiratory failure secondary to acute systolic heart failure exacerbation with asthma exacerbation. 2. Atrial fibrillation with rapid ventricular response. The patient converted to sinus rhythm. She has been started on anticoagulation. She understands the risks associated with anticoagulation. She is not actively suicidal on the day of discharge. 3. Morbid obesity with body mass index of 41.8. 4. Hypokalemia, replaced. 5. Hypomagnesemia, replaced. 6. Type 2 myocardial infarction. 7. History of mild intermittent asthma. 8. Hypertension. 9. Depression without any suicidal ideation. The patient was evaluated by [facility] and a safety plan has been made. 10. lisinopril allergy. The patient was advised to contact PCP or Dr. Schaeffer if she develops any allergic symptoms on Entresto. 11. Mitral regurgitation. 12. Supraventricular tachycardia. This admission, improved with beta blockers. Total time coordinating the discharge of this patient was 37 minutes. Job ID: [id number]
== END 2019-03-31 17:39 | disposition home or self-care (01) | DRG 280 ==
LOC: ERS 12:03 → 2NO 18:16
PROVIDERS: ADMIT Internal Medicine; ATTEND Internal Medicine
PROC: 4A023N7 Measurement of Cardiac Sampling and Pressure, Left Heart, Percutaneous Approach (ICD-10-PCS; principal; 2019-03-27)
PROC: B2151ZZ Fluoroscopy of Left Heart using Low Osmolar Contrast (ICD-10-PCS; 2019-03-27)
PROC: B2111ZZ Fluoroscopy of Multiple Coronary Arteries using Low Osmolar Contrast (ICD-10-PCS; 2019-03-27)
DX: I11.0 Hypertensive heart disease with heart failure (principal); J96.01 Acute respiratory failure with hypoxia; I21.A1 Myocardial infarction type 2; N17.9 Acute kidney failure, unspecified; J45.21 Mild intermittent asthma with (acute) exacerbation; I47.1 Supraventricular tachycardia; Z68.41 Body mass index [BMI] 40.0-44.9, adult; M17.0 Bilateral primary osteoarthritis of knee; I50.23 Acute on chronic systolic (congestive) heart failure; I42.9 Cardiomyopathy, unspecified; M16.0 Bilateral primary osteoarthritis of hip; J30.9 Allergic rhinitis, unspecified; G47.33 Obstructive sleep apnea (adult) (pediatric); I48.91 Unspecified atrial fibrillation; D64.9 Anemia, unspecified; F32.9 Major depressive disorder, single episode, unspecified; E66.01 Morbid (severe) obesity due to excess calories; E87.6 Hypokalemia; E83.42 Hypomagnesemia; I34.0 Nonrheumatic mitral (valve) insufficiency; Z79.899 Other long term (current) drug therapy; Z87.891 Personal history of nicotine dependence; Z87.01 Personal history of pneumonia (recurrent); Z88.8 Allergy status to other drugs, medicaments and biological substances; F51.04 Psychophysiologic insomnia
CPT/HCPCS: 36415; 71045; 71275; 80048; 80053; 82553; 83735; 83880; 84484; 85014; 85018; 85025; 85049; 85379; 93005; 93010; 93306; 93458; 93798; 94640; 96365; 96366; 96372; 96375; 99152; C1769; J1644; J1650; J1940; J2250; J2920; J3010; J3475; J3490; J7050; J7611; J7620; Q9966; Q9967